=== PATIENT | female | born 1965 | race Caucasian/White ===

== ENCOUNTER 2018-09-21 19:54 | Emergency (ER) | payer OTHER ==
[2018-09-21 20:08] VITALS: BP 138/79
--- NOTE | 2018-09-21 20:28 | UC ---
Skin Complaint HPI - HPI Summary HPI Summary: 52-year-old female comes in with chief complaint of redness and swelling in the right forearm for 2 days. Patient was outside walking around and noticed a chief area of the right forearm which he scratched. She thought it was mosquito bite. She did not see any foreign body in the skin. The area got red and it swelled up. Continues to itch. She's taken Benadryl which may have helped decrease the swelling some. No fevers or chills feels well otherwise. No history of MRSA. - History of Current Complaint Chief Complaint: UCSkin Time Seen by Provider: 09/21/18 20:16 Stated Complaint: INSECT BITE Hx Last Menstrual Period: 2 weeks ago Pain Intensity: 1 - Allergy/Home Medications Allergies/Adverse Reactions: Allergies Allergy/AdvReac Type Severity Reaction Status Date / Time No Known Allergies Allergy Verified 09/21/18 20:09 Home Medications: Home Medications diPHENhydraMINE PO* [Benadryl PO 25 MG TAB*] 25 mg PO Q6H PRN 09/21/18 [History Confirmed 09/21/18] PMH/Surg Hx/FS Hx/Imm Hx Previously Healthy: Yes - Surgical History Surgical History: Yes Surgery Procedure, Year, and Place: skin grafts - Family History Known Family History: Positive: Non-Contributory - Social History Alcohol Use: None Substance Use Type: None Smoking Status (MU): Never Smoked Tobacco - Immunization History Most Recent Tetanus Shot: 1990 Review of Systems All Other Systems Reviewed And Are Negative: Yes Constitutional: Positive: Negative Skin: Positive: Rash Eyes: Positive: Negative Respiratory: Positive: Negative Cardiovascular: Positive: Negative Gastrointestinal: Positive: Negative Motor: Positive: Negative Neurovascular: Positive: Negative Musculoskeletal: Positive: Negative Neurological: Positive: Negative Psychological: Positive: Negative Is Patient Immunocompromised?: No Physical Exam Triage Information Reviewed: Yes Appearance: Well-Appearing, No Pain Distress, Well-Nourished Vital Signs: Initial Vital Signs Temp 98.1 F 09/21/18 20:04 Pulse 92 09/21/18 20:04 Resp 16 09/21/18 20:04 BP 138/79 09/21/18 20:04 Pulse Ox 99 09/21/18 20:04 Vital Signs Reviewed: Yes Eye Exam: Normal Eyes: Positive: Conjunctiva Clear Neck: Positive: Supple Respiratory: Positive: No respiratory distress Musculoskeletal: Positive: Strength Intact, ROM Intact Neurological: Positive: Alert, Muscle Tone Normal Psychological: Positive: Age Appropriate Behavior Skin: Positive: Other - 6CM DIAMETER ERYTHEMATOUS RAISED BLANCHING RASH ANTERIOR RT FOREARM. NO STREAKING. FINGERS/WRIST FROM. NL CAP REFILL. Course/Dx - Course Course Of Treatment: THE RASH IS MOST PROBABLY REACTIVE SWELLING FROM A MOSQUITO BITE. ALSO RX KEFLEX TO COVER POSSIBLE CELLULITIS. - Diagnoses Provider Diagnosis: Insect bite, Rash Discharge - Sign-Out/Discharge Documenting (check all that apply): Patient Departure All imaging exams completed and their final reports reviewed: No Studies - Discharge Plan Condition: Stable Disposition: HOME Prescriptions: Cephalexin CAP* [Keflex CAP*] 500 mg PO QID #40 cap predniSONE TAB* [Deltasone 20 MG TAB*] 40 mg PO DAILY PRN #10 tab PRN Reason: Rash Patient Education Materials: Insect Bite or Sting (ED), Acute Rash (ED) Referrals: Michelle Gorman MD [Primary Care Provider] - Additional Instructions: FOLLOW UP WITH YOUR DOCTOR IF NOT COMPLETELY IMPROVED. GET REEVALUATED SOONER FOR ANY WORSENING OF YOUR CONDITION; FEVER, YOU FEEL ILL OR ANY QUESTIONS OR CONCERNS. - Billing Disposition and Condition Condition: STABLE Disposition: Home
== END 2018-09-21 20:38 | disposition home or self-care (01) ==
LOC: UCEAST 19:54
DX: S50.861A Insect bite (nonvenomous) of right forearm, initial encounter (principal); R21 Rash and other nonspecific skin eruption
CPT/HCPCS: 99212; G0463